=== PATIENT | male | born 1980 | race Caucasian/White ===

== ENCOUNTER 2023-12-20 18:47 | Emergency (ER) | payer BC, SELFPAY ==
[2023-12-20] VITALS (7 sets, daily range): BP systolic 166–169; BP diastolic 85–93; PULSE 61–91; RESP 16–20; TEMP 36.8; O2SAT 95–99; BMI 27.1
[2023-12-20 19:30] LABS: Basophils # 0.1 10^3/uL (0.0-0.1); Basophils % 0.5 %; Eosinophils # 0.1 10^3/uL (0.0-0.8); Eosinophils % 0.5 %; Hematocrit 45.1 % (37-53); Lymphocytes # 1.1 10^3/uL (0.8-4.8); Lymphocytes % 6.4 %; Mean Corpuscular HGB Conc 35.7 g/dL (30-55); Mean Platelet Volume 9.5 fL (7.4-10.4); Monocytes # 0.8 10^3/uL (0.2-0.9); Monocytes % 4.6 %; Neutrophils # 14.57 10^3/uL (1.8-7.7); Neutrophils % 87.6 %; Nucleated Red Blood Cells % 0 %; Platelet Count 316 10^3/cmm (157-399); Red Blood Count 5.37 10^6/uL (3.85-5.65); Red Cell Distribution Width 12.2 % (12.1-15.1); White Blood Count 16.63 10^3/uL (3.29-11.43)
--- NOTE | 2023-12-20 19:30 | ED_ITS ---
HPI - Abdominal Pain 2 General: Chief Complaint: Abdominal Pain Stated Complaint: abd pain Time Seen by Provider: 12/20/23 19:23 Source: patient Mode of arrival: ambulatory Limitations: no limitations History of Present Illness: Patient is a 43-year-old male who presents to ED today with complaint of upper abdominal pain as well as nausea and vomiting. He states abdominal pain started earlier this morning and has progressively worsened throughout the day to the point where he has no vomiting. Patient states he does have a history of small bowel obstructions. He states he has had several of these that have all been managed conservatively. Patient states he has been told he has cholelithiasis. He states he did have a small bowel movement this morning and has been passing flatulence during the day. He does feel bloated. He has not been running fevers. Previous abdominal surgeries include an appendectomy. MD elicited complaint: abdominal pain Pertinent past history: other (SBO, appendectomy) Onset (ago): hour(s) Pain Consistency: constant Location: Diffuse and Epigastric Severity: severe Quality: cramping and fullness Radiation: none Migration to: no migration Exacerbating factors: nothing Relieving factors: nothing Associated Symptoms: Reports bloating, GI cramping, nausea and vomiting; Denies change in bowel habits, chills, diarrhea, dysuria, fever(s), hematochezia and melena Review of Systems 2 Const: Denies: fever(s), chills, body aches, fatigue or malaise Card: Denies: chest pain Resp: Denies: dyspnea GI: Reports: abdominal pain, nausea, vomiting, bloating and GI cramping; Denies: diarrhea, change in bowel habits, hematochezia or melena : Denies: flank pain, difficulty urinating, dysuria, urinary frequency, urinary urgency or urinary hesitancy Musc: Denies: neck pain, back pain, extremity pain or joint pain Skin/Breast: Denies: rash Neuro: Denies: headache(s), numbness in extremities, weakness in extremities, sensory changes or dizziness Physical Exam 2 Const: COMMON NORMALS: average body habitus, patient oriented x3, no limitations, healthy appearing, alert and well nourished GENERAL APPEARANCE: cooperative and in distress (appears nauseous, dry heaving) O RIENTATION/CONSCIOUSNESS: Yes awake, Yes oriented to person, Yes oriented to place and Yes oriented to time Eye: COMMON NORMALS: no scleral icterus Resp: COMMON NORMALS: normal respiratory effort and clear to auscultation bilaterally AUSCULTATION: clear to auscultation bilaterally Cardio: COMMON NORMALS: regular rate and regular rhythm RATE: regular rate RHYTHM: regular rhythm GI: COMMON NORMALS: Soft to palpation, No hepatosplenomegaly present and no masses INSPECTION: Yes normal to inspection PALPATION: Yes Soft to palpation, Yes Tenderness to palpation present (GI) (diffusely ), Yes Guarding due to palpation present (GI), No Rigid due to palpation and Yes No hepatosplenomegaly present : COMMON NORMALS: Yes no CVA tenderness BLADDER/KIDNEY EXAM: Yes no CVA tenderness Back/Pelvis: COMMON NORMALS: no CVA tenderness Extremity: GENERAL: Yes normal exam except as noted Neuro: ELSY COMA SCALE: document GCS findings Elsy coma scale eye opening: Spontaneous Elsy coma scale verbal response: Orientated Elsy coma scale motor response: Obey commands [place] coma scale total score: 15 COMMON NORMALS: patient oriented x3 SENSORIUM/ORIENTATION: Yes alert, Yes oriented to person, Yes oriented to place and Yes oriented to time Skin: COMMON NORMALS: no rashes or lesions noted GENERAL SKIN EXAM: no rashes or lesions noted Course 2 Vital Signs: Vital signs: Vital Signs Temperature 98.2 F 12/20/23 18:56 Pulse Rate 63 12/20/23 21:08 Respiratory Rate 16 12/20/23 21:08 Blood Pressure 169/85 12/20/23 21:10 Pulse Oximetry 99 12/20/23 21:08 Oxygen Delivery Me thod Room Air 12/20/23 21:08 MDM - Abdominal Pain Medical Decision Making Patient here with abdominal pain, nausea, vomiting. DDx includes gastroenteritis, SBO, symptomatic cholelithiasis, non-specific enteritis/colitis. He arrives with stable vital signs. Blood work shows a white count of 16.6. Remainder of blood work is completely unremarkable. CT scan showing no acute findings. He does have a gallstone present without wall thickening or pericholecystic inflammatory changes. Patient states he has a known history of cholelithiasis. Discussed possible referral to general surgery but patient would like to follow-up with his primary care provider. He was able to eat and drink while here. Return to ED precautions given. Differential Diagnosis Likely abdominal pain, constipation, gastroenteritis, pancreatitis and small bowel obstruction Medical Records I reviewed the patient's medical records. Lab Data I reviewed the patient's lab results. 12/20/23 19:26 12/20/23 19:26 Labs/Radiology: Radiology Impressions Abdomen/Pelvis CT 12/20/23 19:34 IMPRESSION: 1. No acute findings within the abdomen or pelvis. 2. Gallstone within the gallbladder head/neck without wall thickening or pericholecystic inflammatory changes. 3. Diverticulosis without evidence of diverticulitis. No evidence of bowel obstruction. Laboratory Results WBC 16.63 10^3/uL (3.29-11.43) H 12/20/23 19: RBC 5.37 10^6/uL (3.85-5.65) 12/20/23 19: Hgb 16.10 g/dL (11.27-16.99) 12/20/23 19:26 Hct 45.1 % (37-53) 12/20/23 19: MCV 84.0 fl (82-101) 12/20/23 19: MCH 30.0 pg (27-33) 12/20/23 19: MCHC 35.7 g/dL (30-55) 12/20/23 19:26 RDW 12.2 % (12.1-15.1) 12/20/23 19: Plt Count 316 10^3/cmm (157-399) 12/20/23 19:26 MPV 9.5 fL (7.4-10.4) 12/20/23 19: Neut % (Auto) 87.6 % 12/20/23 19: Lymph % (Auto) 6.4 % 12/20/23 19:26 [place] % (Auto) 4.6 % 12/20/23 19:26 Eos % (Auto) 0.5 % 12/20/23 19:26 Baso % (Auto) 0.5 % 12/20/23 19: Neut # (Auto) 14.57 10^3/uL (1.8-7.7) H 12/20/23 19:26 Lymph # (Auto) 1.1 10^3/uL (0.8-4.8) 12/20/23 19:26 [place] # (Auto) 0.8 10^3/uL (0.2-0.9) 12/20/23 19:26 Eos # (Auto) 0.1 10^3/uL (0.0-0.8) 12/20/23 19:26 Baso # (Auto) 0.1 10^3/uL (0.0-0.1) 12/20/23 19:26 Nucleated RBC % (auto) 0 % 12/20/23 19:26 Nucleated RBCs # 0.0 /100WBC 12/20/23 19:26 Sodium 134 mmol/L (136-145) L 12/20/23 19:26 Potassium 4.0 mmol/L (3.5-5.1) 12/20/23 19:26 Chloride 97 mmol/L (98-107) L 12/20/23 19:26 Carbon Dioxide 25 mmol/L (22-29) 12/20/23 19:26 Anion Gap 16.0 (5-19) 12/20/23 19:26 BUN 8 mg/dL (6-20) 12/20/23 19:26 Creatinine 0.9 mg/dL (0.7-1.2) 12/20/23 19:26 GFR Calculation 91.3 mL/min (90-130) 12/20/23 19:26 Glucose 132 mg/dL (65-115) H 12/20/23 19:26 Calculated Osmolality 278 mOsm/kg (285-295) L 12/20/23 19:26 Lactic Acid 1.7 mmol/L (0.5-2.2) 12/20/23 19:26 Calcium 9.6 mg/dL (8.5-10.5) 12/20/23 19:26 Total Bilirubin 0.7 mg/dL (0.15-1.2) 12/20/23 19:26 AST 22 U/L (0-40) 12/20/23 19:26 ALT 35 U/L (0-41) 12/20/23 19:26 Alkaline Phosphatase 114 U/L (40-130) 12/20/23 19:26 Total Protein 7.7 g/dL (6.6-8.7) 12/20/23 19:26 Albumin 4.7 g/dL (3.5-5.2) 12/20/23 19:26 Globulin 3.0 g/dL (1.3-4.6) 12/20/23 19:26 Lipase 16 U/L (13-60) 12/20/23 19:26 Urine Color Yellow (Yellow) 12/20/23 20:18 Urine Appearance Clear (CLEAR) 12/20/23 20:18 Urine pH 5 (5-7) 12/20/23 20:18 Ur Specific Leopold 1.010 (1.005-1.030) 12/20/23 20:18 Urine Protein Neg (Negative) 12/20/23 20:18 Urine Glucose (UA) Norm (Normal) 12/20/23 20:18 Urine Ketones Negative (Negative) 12/20/23 20:18 Urine Blood Neg (Negative) 12/20/23 20:18 Urine Nitrate Negative (Negative) 12/20/23 20:18 Urine Bilirubin Neg (Negative) 12/20/23 20:18 Urine Urobilinogen Neg mg/dL (Negative) 12/20/23 20:18 Ur Leukocyte Esterase Negative (Negative) 12/20/23 20:18 All radiology interpretation(s) finalized by discharge Discharge Plan Discharge Patient Disposition: Home Clinical Impression: Abdominal pain Qualifiers: Abdominal location: generalized Qualified Code(s): R10.84 - Generalized abdominal pain Cholelithiasis Qualifiers: Cholelithiasis location: gallbladder Cholecystitis presence: without cholecystitis Biliary obstruction: without biliary obstruction Qualified Code(s): K80.20 - Calculus of gallbladder without cholecystitis without obstruction Condition: Stable Prescriptions: New ondansetron 4 mg tablet,disintegrating 4 mg PO Q8H PRN (Reason: nausea and vomiting) Qty: 14 0RF Discharge Orders: Discharge ED (Routine); Ordered 12/20/23 Ordered By: Pattie Kohli Patient Instructions: Abdominal Pain (ED) Activity Restrictions/Additional Instructions: As we discussed I would like you to do a bland liquid diet over the next 24 to 48 hours and slowly advance as tolerated. Need to return to the emergency department for worsening abdominal pain, repetitive episodes of vomiting, inability to have a bowel movement or pass gas, yellowing to your skin or eyes, fevers greater than 100.4, generally feeling worse or unwell, or any other concerns you may have. I would like you to follow-up with primary care this week for reevaluation. Coding Level of Care Code ED Refueler for Karl Mistry
--- NOTE | 2023-12-20 19:34 | CTR_ITS ---
PROCEDURE INFORMATION: Exam: CT Abdomen And Pelvis With Contrast Exam date and time: 12/20/2023 7:52 PM Age: 43 years old Clinical indication: Nausea and vomiting; Abdominal pain; Prior surgery; Surgery date: 6+ months; Surgery type: Appy; Patient HX: C/O epigastric pain with n/v. History of cholelithiasis and sbo. ; Additional info: Abdominal pain, n/v, HX bowel obstruction, gallstones TECHNIQUE: Imaging protocol: Computed tomography of the abdomen and pelvis with contrast. Radiation optimization: All CT scans at this facility use at least one of these dose optimization techniques: automated exposure control; mA and/or kV adjustment per patient size (includes targeted exams where dose is matched to clinical indication); or iterative reconstruction. Contrast material: OMNI 350; Contrast volume: 100 ml; Contrast route: INTRAVENOUS (IV); COMPARISON: No relevant prior studies available. RADIATION DOSE METRICS: Total DLP (mGy-cm): 922.25 FINDINGS: Liver: Hepatic steatosis. Gallbladder and biliary ducts: There is a 2.2 x 2.3 cm peripherally calcified gallstone within the gallbladder head/neck. The gallbladder wall thickening or pericholecystic inflammatory changes. Pancreas: Normal. No ductal dilation. Spleen: Normal. No splenomegaly. Adrenal glands: Normal. No mass. Kidneys and ureters: Normal. No hydronephrosis. Stomach and bowel: Diverticulosis without evidence of diverticulitis. Appendix: Status post appendectomy. Intraperitoneal space: Unremarkable. No free air. No significant fluid collection. Vasculature: Unremarkable. No abdominal aortic aneurysm. Lymph nodes: Unremarkable. No enlarged lymph nodes. Urinary bladder: Unremarkable as visualized. Reproductive: Unremarkable as visualized. Bones/joints: Unremarkable. No acute fracture. Soft tissues: Unremarkable. CT/CT abdomen pelvis w con* [id number] IMPRESSION: 1. No acute findings within the abdomen or pelvis. 2. Gallstone within the gallbladder head/neck without wall thickening or pericholecystic inflammatory changes. 3. Diverticulosis without evidence of diverticulitis. No evidence of bowel obstruction.
[2023-12-20 19:46] LABS: Alanine Aminotransferase 35 U/L (0-41); Albumin Level 4.7 g/dL (3.5-5.2); Alkaline Phosphatase 114 U/L (40-130); Aspartate Amino Transferase 22 U/L (0-40); Blood Urea Nitrogen 8 mg/dL (6-20); Calcium 9.6 mg/dL (8.5-10.5); Carbon Dioxide 25 mmol/L (22-29); Chloride 97 mmol/L (98-107); Creatinine Clr Calc Pharmacy 121.4581; Glomerular Filtration Rate 91.3 mL/min (90-130); Glucose 132 mg/dL (65-115); Lipase 16 U/L (13-60); Osmolality Calculated 278 mOsm/kg (285-295); Sodium 134 mmol/L (136-145); Total Bilirubin 0.7 mg/dL (0.15-1.2); Total Protein 7.7 g/dL (6.6-8.7)
[2023-12-20 19:49] LABS: Lactic Sepsis W/Reflex 1.7 mmol/L (0.5-2.2)
[2023-12-20] MEDS: iohexol 350 mg/mL 500 mL Btl (per mL) IV (19:55)
[2023-12-20] MEDS: sodium chloride 0.9% 1,000 ML 999 ML IV (20:07)
[2023-12-20] MEDS: ondansetron 2 mg/ML SDV 2 mL 4 MG IVP (20:08)
[2023-12-20] MEDS: morphine 4 mg/mL SDV 1 mL IVP ×2 (20:09→21:23)
[2023-12-20 20:22] LABS: Add Urine Microscopic? NO; Charge for UA Resulting for Rev
[2023-12-20 20:24] LABS: Bilirubin Urine Neg (Negative); Blood Urine Neg (Negative); Glucose Urine UA Norm (Normal); Ketones Urine Negative (Negative); Leukocyte Esterase Urine Negative (Negative); Nitrate Urine Negative (Negative); Protein Urine Neg (Negative); Urine Appearance Clear (CLEAR); Urine Color Yellow (Yellow); Urobilinogen Urine Neg (Negative); pH Urine 5 (5-7)
== END 2023-12-20 21:26 | disposition home or self-care (01) ==
PROVIDERS: Emergency Provider Physician Assistant
DX: R10.84 Generalized abdominal pain (principal); K80.20 Calculus of gallbladder without cholecystitis without obstruction
CPT/HCPCS: 74177; 80053; 81003; 83605; 83690; 85025; 96374; 96375; 96376; 99285; J2270; J2405; J7030; Q9967